=== PATIENT | female | born 1990 | race Caucasian/White ===

== ENCOUNTER 2017-08-22 23:58 | Emergency (ER) | payer MEDICAID, OTHER ==
[2017-08-23 00:17] VITALS: RESP 20
--- NOTE | 2017-08-23 00:35 | C.PDOC ---
History Of Present Illness 27 year old female presents to the ED c/o abdominal pain. Patient states she has not had any bowel movements in 4 days. Patient reports she has not had her period in 2 months. Patient describes her pain as aching abdominal pain. Patient denies fever, chill, nausea, vomit, diarrhea. Time Seen by Provider: 08/23/17 00:35 Chief Complaint (Nursing): Abdominal Pain History Per: Patient History/Exam Limitations: no limitations Onset/Duration Of Symptoms: Days Current Symptoms Are (Timing): Still Present Location Of Pain/Discomfort: Diffuse Radiation Of Pain To:: None Quality Of Discomfort: "Pain" Associated Symptoms: Constipation Exacerbating Factors: None Alleviating Factors: None Recent travel outside of the [place]: No Additional History Per: Patient Abnormal Vaginal Bleeding: No Past Medical History Reviewed: Historical Data, Nursing Documentation, Vital Signs Vital Signs: Last Vital Signs Temp 98 F 08/23/17 04:58 Pulse 76 08/23/17 04:58 Resp 20 08/23/17 04:58 BP 101/65 08/23/17 04:58 Pulse Ox 100 08/23/17 04:58 - Medical History PMH: No Chronic Diseases Surgical History: No Surg Hx Family History: States: Unknown Family Hx - Social History Hx Alcohol Use: No Hx Substance Use: No - Immunization History Hx Tetanus Toxoid Vaccination: No Hx Influenza Vaccination: No Hx Pneumococcal Vaccination: No Review Of Systems Constitutional: Negative for: Fever, Chills Gastrointestinal: Positive for: Abdominal Pain, Constipation. Negative for: Nausea, Vomiting Genitourinary: Negative for: Dysuria, Hematuria Skin: Negative for: Rash Neurological: Negative for: Weakness, Numbness Physical Exam - Physical Exam Appears: Non-toxic, No Acute Distress Skin: Warm, Dry Head: Normacephalic Eye(s): bilateral: Normal Inspection Nose: No Discharge Oral Mucosa: Moist Neck: Normal ROM, Supple Chest: Symmetrical Cardiovascular: Rhythm Regular, No Murmur Respiratory: No Rales, No Rhonchi, No Wheezing Gastrointestinal/Abdominal: Soft, Tenderness (diffuse), No Guarding, No Rebound Extremity: Bilateral: Normal Color And Temperature, Normal ROM Neurological/Psych: Oriented x3, Normal Motor, Normal Sensation Gait: Steady ED Course And Treatment - Laboratory Results Result Diagrams: 08/23/17 01:19 08/23/17 01:19 O2 Sat by Pulse Oximetry: 98 (On RA) Pulse Ox Interpretation: Normal Progress Note: Plan: - Labs. - IV fluids. - UA Reevaluation Time: 05:22 Reassessment Condition: Improved Disposition Counseled Patient/Family Regarding: Studies Performed, Diagnosis, Need For Followup, Rx Given - Disposition Referrals: Sally Conde MD [Non-Staff] - Disposition: HOME/ ROUTINE Disposition Time: 00:35 Condition: FAIR Additional Instructions: Please return if symptoms recur Prescriptions: Polyethylene Glycol 3350 [Miralax] 17 gm PO DAILY #270 ml Instructions: Constipation, Adult (DC) Forms: [employer] (Swiss) - Clinical Impression Clinical Impression: Abdominal pain, Constipation - Scribe Statement The provider has reviewed the documentation as recorded by the Scribe Amilcar Kelsey All medical record entries made by the Scribe were at my direction and personally dictated by me. I have reviewed the chart and agree that the record accurately reflects my personal performance of the history, physical exam, medical decision making, and the department course for this patient. I have also personally directed, reviewed, and agree with the discharge instructions and disposition.
[2017-08-23 00:59] LABS: HCG,QUALITATIVE URINE NEGATIVE (NEGATIVE)
[2017-08-23 01:01] LABS: SQUAMOUS EPITHIAL 1 /hpf (0-5); URINE BACTERIA OCC (<OCC); URINE BILIRUBIN NEGATIVE (NEGATIVE); URINE CLARITY Clear (Clear); URINE COLOR Straw (YELLOW); URINE GLUCOSE (UA) NORMAL (Normal); URINE LEUKOCYTE ESTERASE NEG Leu/uL (Negative); URINE PROTEIN NEGATIVE (NEGATIVE); URINE UROBILINOGEN NORMAL mg/dL (0.2-1.0)
[2017-08-23] MEDS ORDERED: Sodium Chloride 0.9% 1,000 ML IV ONE (01:02)
[2017-08-23] MEDS ORDERED: Sodium Chloride 0.9% 1,000 ML ONE (01:10)
[2017-08-23 01:24] LABS: BASO # 0.1 K/uL (0.0-0.2); BASO % 0.7 % (0.0-2.0); EOS # 0.5 K/uL (0.0-0.7); EOS % 4.9 % (0.0-4.0); HEMOGLOBIN 12.9 g/dL (11.0-16.0); LYMPH # 1.9 K/uL (1.0-4.3); LYMPH % 20.1 % (20.0-40.0); MEAN CELL VOLUME 83.2 fL (81.0-99.0); MEAN CORPUSCULAR HEMOGLOBIN 27.8 pg (27.0-31.0); MEAN CORPUSCULAR HGB CONC 33.4 g/dL (33.0-37.0); MEAN PLATELET VOLUME 8.5 fL (7.2-11.7); MONO # 0.5 K/uL (0.0-0.8); MONO % 5.5 % (0.0-10.0); NEUT # 6.6 K/uL (1.8-7.0); NEUT % 68.8 % (50.0-75.0); RBC 4.63 Mil/uL (3.80-5.20); RED CELL DISTRIBUTION WIDTH 13.2 % (11.5-14.5); WHITE BLOOD COUNT 9.5 K/uL (4.8-10.8)
[2017-08-23 01:37] LABS: URINE BLOOD NEGATIVE (NEGATIVE)
[2017-08-23 01:41] LABS: INR 1.1
[2017-08-23 02:12] LABS: ALB/GLOB RATIO 1.2 (1.0-2.1); ALBUMIN 4.4 g/dL (3.5-5.0); ALT/SGPT 9 U/L (9-52); AST/SGOT 19 U/L (14-36); BLOOD UREA NITROGEN 11 mg/dL (7-17); CALCIUM 9.2 mg/dl (8.6-10.4); GFR AFRICAN-AMERICAN > 60; GFR NON-AFRICAN AMERICAN > 60; LIPASE 152 U/L (23-300)
[2017-08-23] MEDS ORDERED: Iodixanol 320 MG/ML 100 ML BOTTLE IV ONE (03:22)
[2017-08-23 04:58] VITALS: BP 101/65; PULSE 76; TEMP 98
[2017-08-23 05:24] VITALS: O2SAT 98
--- NOTE | 2017-08-23 09:47 | CT ---
PROCEDURE: CT Abdomen and Pelvis with contrast HISTORY: abd pain COMPARISON: None. TECHNIQUE: Contrast dose: 100 mL Visipaque 320 Radiation dose: Total exam DLP = 404.7 mGy-cm. This CT exam was performed using one or more of the following dose reduction techniques: Automated exposure control, adjustment of the mA and/or kV according to patient size, and/or use of iterative reconstruction technique. FINDINGS: LOWER THORAX: Unremarkable. LIVER: Unremarkable. No gross lesion or ductal dilatation. GALLBLADDER AND BILE DUCTS: Unremarkable. PANCREAS: Unremarkable. No gross lesion or ductal dilatation. SPLEEN: Unremarkable. ADRENALS: Unremarkable. No mass. KIDNEYS AND URETERS: Unremarkable. No hydronephrosis. Bilateral ureteral distention. No solid mass. VASCULATURE: Unremarkable. No aortic aneurysm. BOWEL: Unremarkable. No obstruction. No gross mural thickening. APPENDIX: Normal appendix. PERITONEUM: Unremarkable. No free fluid. No free air. LYMPH NODES: Unremarkable. No enlarged lymph nodes. BLADDER: Distended bladder. REPRODUCTIVE: Unremarkable. BONES: No acute fracture. OTHER FINDINGS: None. IMPRESSION: No acute abdominal pelvic pathology.
== END 2017-08-23 05:32 | disposition home or self-care (01) ==
LOC: C.ER 23:58
DX: K59.00 Constipation, unspecified (principal); R10.9 Unspecified abdominal pain
CPT/HCPCS: 74177; 80053; 81001; 83690; 84702; 84703; 85025; 85610; 85730; 96361; 96374; 99284; J1885; J7040; Q9967

== ENCOUNTER 2017-10-11 18:00 | Emergency (ER) | payer OTHER ==
[2017-10-11 18:05] VITALS: BP 109/69; PULSE 68; RESP 20; TEMP 97.9; O2SAT 100
--- NOTE | 2017-10-11 19:10 | C.PDOC ---
History Of Present Illness 27 y/o female presents to the ER complaining of pain and swelling to the right ankle which began after she twisted her right ankle when stepping off curb yesterday at 5am. Patient states that she noticed bruising to ankle today. Denies having weakness, numbness, and other injuries. Time Seen by Provider: 10/11/17 19:05 Chief Complaint (Nursing): Lower Extremity Problem/Injury History Per: Patient History/Exam Limitations: no limitations Onset/Duration Of Symptoms: Days Current Symptoms Are (Timing): Still Present Severity: Moderate Past Medical History Reviewed: Historical Data, Nursing Documentation, Vital Signs Vital Signs: Last Vital Signs Temp 97.9 F 10/11/17 18:03 Pulse 68 10/11/17 18:03 Resp 20 10/11/17 20:39 BP 109/69 10/11/17 18:03 Pulse Ox 100 10/11/17 20:27 - Medical History PMH: No Chronic Diseases Surgical History: Family History: States: No Known Family Hx - Social History Hx Alcohol Use: No Hx Substance Use: No - Immunization History Hx Tetanus Toxoid Vaccination: No Hx Influenza Vaccination: No Hx Pneumococcal Vaccination: No Review Of Systems Except As Marked, All Systems Reviewed And Found Negative. Musculoskeletal: Positive for: Other (right ankle pain) Neurological: Negative for: Weakness, Numbness Physical Exam - Physical Exam Appears: Non-toxic, No Acute Distress Skin: Normal Color, Warm, Dry, Ecchymosis (mild ecchymosis to lateral aspect of right ankle) Head: Atraumatic, Normacephalic Eye(s): bilateral: Normal Inspection Nose: Normal Oral Mucosa: Moist Neck: Supple Chest: Symmetrical Cardiovascular: Rhythm Regular Respiratory: Normal Breath Sounds, No Rales, No Rhonchi, No Wheezing Extremity: Normal ROM, Tenderness (tenderness to lateral aspect of right ankle) , Swelling (swelling to lateral aspect of right ankle) Neurological/Psych: Oriented x3, Normal Speech Gait: Steady ED Course And Treatment O2 Sat by Pulse Oximetry: 100 (RA) Pulse Ox Interpretation: Normal Medical Decision Making Medical Decision Making: Impression: Ankle injury Plan: * Xray * Ice pack * Tylenol given during triage Progress: Xray viewed by me showing soft tissue swelling, no acute fracture RN applied aircast to ankle. Patient instructed on crutch walking Recommend rest, ice and NSAID for pain. Rx was given. Advise follow up with ortho if pain persists. Disposition Counseled Patient/Family Regarding: Diagnosis, Need For Followup, Rx Given - Disposition Referrals: Zahra Phipps MD [Staff Provider] - Disposition: HOME/ ROUTINE Disposition Time: 20:26 Condition: GOOD Additional Instructions: Your xray was normal, no fracture. Please apply ice to area 15 minutes three times a day. Take Motrin as needed for pain every 6 hours, with food to not upset stomach. Follow up with orthopedic if pain persists over one week. Prescriptions: Ibuprofen [Motrin] 600 mg PO Q8 #30 tab Instructions: Ankle Sprain (DC) Forms: [employer] (Ukrainian), Work Excuse - POA Present On Arrival: None - Clinical Impression Clinical Impression: Ankle sprain - PA / ROUGE [employer]ER / Resident Statement MD/DO has reviewed & agrees with the documentation as recorded. - Scribe Statement The provider has reviewed the documentation as recorded by the Adibe Kesha Fonseca Provider Attestation All medical record entries made by the Scribe were at my direction and personally dictated by me. I have reviewed the chart and agree that the record accurately reflects my personal performance of the history, physical exam, medical decision making, and the department course for this patient. I have also personally directed, reviewed, and agree with the discharge instructions and disposition. Abraham Ankle Rules - Malleolar zone tenderness? Posterior edge or tip of lateral malleolus: Yes Inability to bear weight both immediately and in the ED: Yes - Midfoot zone tenderness? Base of 5th Metatarsal: Yes Navicular: No Inability to bear weight both immediately and in the ED: Yes - XRAY INDICATED Is an ankle x-ray indicated based on findings?: Yes
--- NOTE | 2017-10-12 10:48 | RAD ---
PROCEDURE: Right ankle dated 10/11/2017. HISTORY: pain s.p twisting injury COMPARISON: Non comparison made with concurrent radiographs of the right foot FINDINGS: BONES: No evidence acute displaced fracture nor dislocation. JOINTS: Normal. No osteoarthritis. Ankle mortise maintained. Talar dome intact SOFT TISSUES: Mild soft tissue swelling overlying the lateral malleolus OTHER FINDINGS: None. IMPRESSION: No evidence of acute displaced fracture nor dislocation. Mild soft tissue swelling overlying the lateral malleolus. If symptoms persist or occult fracture suspected clinically recommend repeat radiographs in 5-10 days as most fractures should become radiographically evident in this timeframe.
--- NOTE | 2017-10-12 10:50 | RAD ---
PROCEDURE: Right Foot Radiographs. HISTORY: pain s.p twisting injury COMPARISON: Correlation made with concurrent radiographs of the right ankle FINDINGS: BONES: Normal. No fracture. JOINTS: Normal. SOFT TISSUES: Questionable minor dorsal soft tissue swelling at the level of the metatarsals. . OTHER FINDINGS: None. IMPRESSION: No evidence of acute displaced fracture nor dislocation. If symptoms persist consider repeat radiographs 7-10 days as most fractures should become radiographically evident this timeframe.
== END 2017-10-11 20:39 | disposition home or self-care (01) ==
LOC: C.ER 18:00
DX: S93.401A Sprain of unspecified ligament of right ankle, initial encounter (principal); X50.9XXA Other and unspecified overexertion or strenuous movements or postures, initial encounter